=== PATIENT | female | born 1960 | race Caucasian/White ===

== ENCOUNTER 2017-12-12 16:41 | Emergency (ER) | payer OTHER ==
[2017-12-12] MEDS ORDERED: ONDANSETRON HCL 4 MG/2 ML VIAL ONE (16:57)
[2017-12-12] MEDS ORDERED: FENTANYL CITRATE PF 50 MCG/1 ML 2ML VIAL ONE (16:57)
[2017-12-12] MEDS ORDERED: HYDROCODONE/ACETAMINOPHEN 5/325 MG TAB ONE (20:19)
[2017-12-13] MEDS ORDERED: CALC600T12 PO (17:45)
[2017-12-13] MEDS ORDERED: LEVO50TA4 PO (17:45)
[2017-12-13] MEDS ORDERED: CHOL200016 PO (17:45)
[2017-12-13] MEDS ORDERED: LORA10TA7 PO (17:45)
== END 2017-12-12 20:31 | disposition home or self-care (01) ==
LOC: EDH 16:41
DX: S82.851A Displaced trimalleolar fracture of right lower leg, initial encounter for closed fracture (principal); E07.9 Disorder of thyroid, unspecified; Z98.890 Other specified postprocedural states; X58.XXXA Exposure to other specified factors, initial encounter; Y93.89 Activity, other specified; Y92.89 Other specified places as the place of occurrence of the external cause; Y99.8 Other external cause status
CPT/HCPCS: 27818; 73600 ×3; 96374; 96375; 99284; J2405; J3010

== ENCOUNTER 2017-12-13 15:00 | Observation (INO) | payer OTHER ==
[~2017-12-13] VITALS: Ht 160 cm; Wt 73.2 kg
[2017-12-13 16:24] VITALS: BP 140/84
[2017-12-13 16:42] LABS: BASOPHILS % (AUTO) 0.4 % (0.0-5.0); EOSINOPHILS % (AUTO) 2.6 % (0.0-8.0); HEMATOCRIT 38.5 % (36-48); LYMPHOCYTES % (AUTO) 16.4 % (21.0-51.0); MEAN CORPUSCULAR HEMOGLOBIN 27.4 pg (27.0-33.0); MEAN CORPUSCULAR HGB CONC 33.6 g/dL (32.0-36.0); MEAN CORPUSCULAR VOLUME 81.6 fL (79-99); MONOCYTES % (AUTO) 7.3 % (3.0-13.0); NEUTROPHILS % (AUTO) 73.3 % (40.0-77.0); PLATELET COUNT (AUTO) 320 K/uL (130-400); RED BLOOD CELL COUNT(AUTO) 4.72 MIL/uL (4.00-5.50); RED CELL DISTRIBUTION WIDTH 13.6 % (11.0-15.5); WHITE BLOOD COUNT (AUTO) 9.3 K/uL (4.8-10.8)
[2017-12-13 16:54] LABS: CREATININE 0.9 mg/dL (0.5-1.5); POTASSIUM 3.7 mmol/L (3.5-5.1)
[2017-12-13 16:56] LABS: INR 0.99 (0.85-1.15); PARTIAL THROMBOPLASTIN TIME 27.5 SEC (26.3-35.5); PROTHROMBIN TIME 10.4 SEC (9.6-11.6)
[2017-12-13 17:09] LABS: APPEARANCE,URINE Cloudy (CLEAR); BILIRUBIN,URINE Negative (NEGATIVE); COLOR,URINE Dark Yellow (YELLOW); GLUCOSE, URINE (UA) Negative (NEGATIVE); KETONES,URINE Trace mg/dL (NEGATIVE); LEUKOCYTE ESTERASE ,URINE Negative (NEGATIVE); NITRATE,URINE Negative (NEGATIVE); OCCULT BLOOD,URINE Trace (NEGATIVE); PH,URINE 5.5 (5.0-8.0); PROTEIN,URINE POS 1+ (NEGATIVE)
[2017-12-13 17:17] LABS: BACTERIA,URINE Few /HPF (None Seen); MUCUS,URINE Many LPF (None Seen); RBC,URINE 0-1 /HPF (0-1); SQUAMOUS EPITHELIAL CELL,UR Moderate /HPF (0-2); WBC,URINE None Seen /HPF (0-1)
[2017-12-13] MEDS ORDERED: CHOL200016 PO (17:45)
[2017-12-13] MEDS ORDERED: LEVO50TA4 PO (17:45)
[2017-12-13] MEDS ORDERED: LORA10TA7 PO (17:45)
[2017-12-13] MEDS ORDERED: CALC600T12 PO (17:45)
[2017-12-15] VITALS (23 sets, daily range): BP systolic 121–159; BP diastolic 69–96
[2017-12-15] MEDS: CEFAZOLIN SODIUM 1 GM VIAL IVP SCH ×2 (11:00→15:30)
[2017-12-15] MEDS ORDERED: CEFAZOLIN SODIUM 1 GM VIAL ONE (11:06)
[2017-12-15] MEDS ORDERED: LACTATED RINGERS 1000ML 1,000 ML IV ONE (11:06)
[2017-12-15] MEDS ORDERED: NEOSTIGMINE 5MG/5ML SYR IV ONE (13:14)
[2017-12-15] MEDS ORDERED: GLYCOPYRROLATE 0.2 MG/ML 5 ML VIAL ONE (13:14)
[2017-12-15] MEDS ORDERED: LIDOCAINE PF 2% 5ML ABBOJECT ONE (13:14)
[2017-12-15] MEDS ORDERED: DEXAMETHASONE SOD PHOSPHATE 10MG/ML 1ML VIAL ONE (13:14)
[2017-12-15] MEDS ORDERED: FENTANYL CITRATE PF 50 MCG/1 ML 2ML VIAL ONE (13:15)
[2017-12-15] MEDS ORDERED: PROPOFOL 10 MG/ML 20ML VIAL IV ONE (13:15)
[2017-12-15] MEDS ORDERED: MIDAZOLAM HCL 1 MG/ML 2ML VIAL ONE (13:15)
[2017-12-15] MEDS ORDERED: ROPIVACAINE 0.5% 5MG/ML 30ML IJ ONE (13:19)
[2017-12-15] MEDS ORDERED: OXYMETAZOLINE HCL SPRAY 15 ML BOTTLE ONE (15:29)
[2017-12-15] MEDS ORDERED: PHENYLEPHRINE HCL 10 MG/ML 1ML VIAL IV ONE (15:29)
[2017-12-15] MEDS ORDERED: MEPERIDINE-PF 25 MG/ML SYG ONE (16:56)
[2017-12-15] MEDS ORDERED: LORATADINE 10 MG TABLET PO PRN (18:45)
[2017-12-15] MEDS ORDERED: MORPHINE SULFATE 4 MG/1ML SYG IVP PRN (19:30)
[2017-12-15] MEDS ORDERED: ONDANSETRON HCL MDV 20ML 2 MG/ML VIAL IVP PRN (19:30)
[2017-12-16 04:00] VITALS: BP 123/82
[2017-12-16] MEDS: SODIUM CHLORIDE 0.9% 1000ML 1,000 ML IV SCH ×2 (06:54→16:48)
[2017-12-16] MEDS: LEVOTHYROXINE 50 MCG TABLET PO SCH (06:55)
[2017-12-16 08:09] VITALS: BP 142/86
[2017-12-16] MEDS: CALCIUM CARBONATE 500 MG TABLET PO SCH (09:34)
[2017-12-16] MEDS: ENOXAPARIN SODIUM 40 MG/0.4 ML SYRINGE SQ SCH (09:34)
[2017-12-16] MEDS: DOCUSATE CALCIUM 240 MG CAP PO SCH ×2 (09:35→20:52)
[2017-12-16 11:58] VITALS: BP 141/89
[2017-12-16 16:00] VITALS: BP 133/86
[2017-12-16 19:52] VITALS: BP 128/87
[2017-12-16] MEDS: HYDROCODONE/ACETAMINOPHEN 5/325 MG TAB PO PRN (20:53)
[2017-12-16 23:55] VITALS: BP 104/68
[2017-12-17 04:00] VITALS: BP 115/80
[2017-12-17] MEDS: LEVOTHYROXINE 50 MCG TABLET PO SCH (05:07)
[2017-12-17] MEDS: HYDROCODONE/ACETAMINOPHEN 5/325 MG TAB PO PRN ×4 (05:09→18:02)
[2017-12-17] MEDS: SODIUM CHLORIDE 0.9% 1000ML 1,000 ML IV SCH (05:47)
[2017-12-17 07:43] VITALS: BP 112/80
[2017-12-17] MEDS: DOCUSATE CALCIUM 240 MG CAP PO SCH (09:06)
[2017-12-17] MEDS: CALCIUM CARBONATE 500 MG TABLET PO SCH (09:06)
[2017-12-17] MEDS: ENOXAPARIN SODIUM 40 MG/0.4 ML SYRINGE SQ SCH (09:07)
[2017-12-17 11:38] VITALS: BP 138/86
[2017-12-17] MEDS ORDERED: TYL3 PO (18:19)
[2017-12-17] MEDS ORDERED: DOCU240C80 PO (18:20)
[2017-12-17] MEDS ORDERED: TRAM50TA4 PO (18:21)
== END 2017-12-17 20:05 | disposition home health service, planned readmission (86) ==
LOC: EDSTATUS 15:00 → DAHIP 12-15 10:33 → 4BH 12-15 17:58
PROVIDERS: ADMIT Orthopaedic Surgery; ATTEND Orthopaedic Surgery
DX: S82.851A Displaced trimalleolar fracture of right lower leg, initial encounter for closed fracture (principal); W18.39XA Other fall on same level, initial encounter; Y93.89 Activity, other specified; Y92.89 Other specified places as the place of occurrence of the external cause; Y99.8 Other external cause status
CPT/HCPCS: 20692; 36415; 76000; 80048; 81001; 85025; 85610; 85730; 96372 ×2; 96374; 97039; 97116 ×2; 97161; A4218; A4606; A4649; A4930 ×2; A6223; A6446; C1713; C1776 ×4; G0378 ×59; G8978; G8979; G8980; G8981; G8982; G8983; J0690; J1100; J1650 ×2; J2001; J2175; J2250; J2270; J2370; J2704; J2710; J2795; J3010; J3490; J7030 ×2; J7120 ×2

== ENCOUNTER 2017-12-29 06:28 | Day surgery (SDC) | payer OTHER ==
[2017-12-28 10:05] VITALS: BP 131/81
[~2017-12-29] VITALS: Ht 160 cm; Wt 73.0 kg
[2017-12-29] VITALS (13 sets, daily range): BP systolic 129–155; BP diastolic 75–91
[~2017-12-29 06:28] MED LIST: CALC600T12 PO; CHOL200016 PO; DOCU240C80 PO; LEVO50TA4 PO; TRAM50TA4 PO; TYL3 PO
[2017-12-29] MEDS ORDERED: LACTATED RINGERS 1000ML 1,000 ML IV ONE (07:11)
[2017-12-29] MEDS: CEFAZOLIN SODIUM 1 GM VIAL IVP ONE ×2 (08:00→09:10)
[2017-12-29] MEDS ORDERED: WATER FOR INJECTION,STERILE 20 ML VIAL IJ ONE (08:00)
[2017-12-29] MEDS ORDERED: MIDAZOLAM HCL 1 MG/ML 2ML VIAL ONE (08:46)
[2017-12-29] MEDS ORDERED: PROPOFOL 10 MG/ML 20ML VIAL IV ONE ×2 (08:46→10:52)
[2017-12-29] MEDS ORDERED: FENTANYL CITRATE PF 50 MCG/1 ML 2ML VIAL ONE ×3 (08:46→10:43)
[2017-12-29] MEDS ORDERED: CALDOLOR 800MG+NS 250ML 250 ML IV ONE ×2 (09:37→11:38)
[2017-12-29] MEDS ORDERED: NEOSTIGMINE METHYLSULFATE 1MG/ML IV ONE (11:03)
[2017-12-29] MEDS ORDERED: MORPHINE SULFATE 2 MG/ML 1ML SYG ONE ×2 (11:38→11:48)
[2017-12-29] MEDS ORDERED: MEPERIDINE-PF 50 MG/ML SYG ONE (12:00)
[2017-12-29] MEDS ORDERED: ONDANSETRON HCL MDV 20ML 2 MG/ML VIAL ONE (12:55)
[2017-12-29] MEDS ORDERED: MEPERIDINE-PF 50 MG/ML SYG IVP PRN (13:45)
[2017-12-29] MEDS ORDERED: ONDANSETRON HCL MDV 20ML 2 MG/ML VIAL IVP PRN (14:00)
[2017-12-29] MEDS ORDERED: MORPHINE SULFATE 5 MG/ML VIAL IVP PRN (14:00)
== END 2017-12-29 13:35 | disposition home or self-care (01) ==
LOC: DAH 06:28
PROVIDERS: ATTEND Orthopaedic Surgery
DX: S82.851D Displaced trimalleolar fracture of right lower leg, subsequent encounter for closed fracture with routine healing (principal); X58.XXXD Exposure to other specified factors, subsequent encounter; Z68.29 Body mass index [BMI] 29.0-29.9, adult; Z79.899 Other long term (current) drug therapy
CPT/HCPCS: 20694; 27814; 27829; 76000; 88300; A4218; A4649; A4930 ×2; A6223; C1713 ×5; C1776; J0690; J1741 ×2; J2175; J2250; J2704 ×2; J2710; J3010 ×3; J7120 ×2; Q4050